=== PATIENT | female | born 1925 | race Caucasian/White ===

== ENCOUNTER 2017-03-07 16:20 | Emergency (ER) | payer OTHER ==
[2017-03-07 16:32] VITALS: O2SAT 90
--- NOTE | 2017-03-07 16:33 | EDPHY ---
H & P Stated Complaint: Bleeding of R 2nd and 3rd toe since yesterday after dropping gripper on it. HPI/ROS: HPI CHIEF COMPLAINT: Trauma to Toesnails. HISTORY OF PRESENT ILLNESS: This patient 89-year-old female she is a diabetic, she presents emergency room by private vehicle with an injury to her toenails. Patient states that she is diabetic. She just recently got out of the hospital had a left foot toe amputation. 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 This happen yesterday. She had bleeding. Her toenails rather long. She is usually followed by Podiatry for care. However has not seen a medical recruiter in a while due to insurance reasons. She presents emergency room requesting 1. Podiatry referral, and 2. Evaluation of toe nails that have been bleed. She denies any significant pain. Past Medical History: Diabetes, severe neuropathy of her feet Past Surgical History: Recent left foot toe amputation Social History: Denies drugs alcohol tobacco products. Family History: Noncontributory ROS REVIEW OF SYSTEMS: A comprehensive 10 point review of systems is otherwise negative aside from elements mentioned in the history of present illness. Exam Constitutional triage nursing summary reviewed, vital signs reviewed, awake/ alert. Eyes normal conjunctivae and sclera, EOMI, PERRLA. HENT normal inspection, atraumatic, moist mucus membranes, no epistaxis, neck supple/ no meningismus, no raccoon eyes. Respiratory clear to auscultation bilaterally, normal breath sounds, no respiratory distress, no wheezing. Cardiovascular rate normal, regular rhythm, no murmur, no edema, distal pulses normal. Gastrointestinal soft, non-tender, no rebound, no guarding, normal bowel sounds, no distension, no pulsatile mass. Genitourinary no CVA tenderness. Musculoskeletal left foot in postop shoe. Right foot: Warm, good cap refill. Rather long toenails. Noted on the 2nd and 3rd toenail there was trauma noted with dry blood around the nail bed. No subungual hematoma. Rather long toenails. No signs of infection. Skin pink, warm, & dry, no rash, skin atraumatic. Neurologic awake, alert and oriented x 3, AAOx3, moves all 4 extremities equally, motor intact, sensory intact, CN II-XII intact, normal cerebellar, normal vision, normal speech. Psychiatric normal mood/affect. Heme/Lymph/Immune no lymphadenopathy. Differential Diagnosis: Includes but is not limited to in a particular order toenail trauma, long toenails, need for podiatry referral. Medical Decision Making: Plan for this patient will wrap her toes, with a dressing. I do recommend warm soaks. Recommend following with Podiatry. Will give her referral. Return emergency room if there is any further questions or concerns or signs of infection this includes redness, swelling, pus or drainage. 1732: After close inspection of her toes. The 3rd toe toenail on the right foot was almost completely avulsed off hanging on by a thread of skin. The patient requested this be removed. I was able to cut off. She has good hemostasis. There is no signs of infection. I do recommend warm soaks. She has severe neuropathy. Her placed on Keflex. She understands do warm soaks and follow up with Podiatry. I referred her to them she should call there tomorrow for an appointment. Return emergency room if there is any further symptoms questions or concerns or signs of infection. She understands to watch her feet closely issues neuropathy cannot feel them watch closely for infection. Source: Patient - Personal History Current Tetanus Diphtheria and Acellular Pertussis (TDAP): Yes Tetanus Vaccine Date: 2015 - Medical/Surgical History Hx Asthma: No Hx Chronic Respiratory Disease: No Hx Diabetes: Yes Hx Cardiac Disease: No Hx Renal Disease: No Hx Cirrhosis: No Hx Alcoholism: No Hx HIV/AIDS: No Hx Splenectomy or Spleen Trauma: No Other PMH: DM, HTN, hypothyroidism, L toe amputation - Social History Smoking Status: Never smoked Constitutional: Initial Vital Signs Temperature (C) 36.8 C 03/07/17 16:26 Heart Rate 88 03/07/17 16:26 Respiratory Rate 16 03/07/17 16:26 Blood Pressure 164/85 H 03/07/17 16:26 O2 Sat (%) 90 L 03/07/17 16:26 O2 Delivery Mode Room Air Allergies/Adverse Reactions: No Known Allergies Allergy (Verified 03/07/17 16:31) Home Medications: Medication Instructions Recorded Cartia Xt 03/07/17 Cephalexin [Keflex] 500 mg PO Q6H #28 cap 03/07/17 Hydrochlorothiazide 03/07/17 Levothyroxine Sodium 03/07/17 Metformin HCl 03/07/17 Olmesartan Medoxomil 03/07/17 Departure - Departure Disposition: Home, Routine, Self-Care Clinical Impression: Contusion of toe with damage to nail Qualifiers: Encounter type: initial encounter Toe: lesser toe Laterality: right Qualified Code(s): S90.221A - Contusion of right lesser toe(s) with damage to nail, initial encounter Condition: Good Instructions: Foot Contusion (ED) Additional Instructions: 1. Perform warm soaks. 2. Watch for signs of infection this includes drainage, pus, redness, swelling. 3. Please call Podiatry make a follow-up appointment next 24-48 hours. 4.Take your antibiotic as prescribed Referrals: René Joshua MD [Primary Care Provider] - As per Instructions Daniel Gatica DPM [Doctor of Podiatric Medicine] - As per Instructions Prescriptions: Cephalexin [Keflex] 500 mg PO Q6H #28 cap
[2017-03-07 17:59] VITALS: BP 176/101; PULSE 84; RESP 20; TEMP 98.4
== END 2017-03-07 17:57 | disposition home or self-care (01) ==
LOC: CED 16:20
DX: S90.221A Contusion of right lesser toe(s) with damage to nail, initial encounter (principal); I10 Essential (primary) hypertension; E11.9 Type 2 diabetes mellitus without complications; Z79.84 Long term (current) use of oral hypoglycemic drugs; W20.8XXA Other cause of strike by thrown, projected or falling object, initial encounter